=== PATIENT | male | born 1955 | race Caucasian/White ===

== ENCOUNTER 2018-11-19 07:51 | Day surgery (SDC) | payer MEDICARE ==
[2018-11-14 11:34] VITALS: BP 163/78
[2018-11-14 11:42] LABS: BASOPHILS % (AUTO) 1.2 % (0.0-5.0); EOSINOPHILS % (AUTO) 4.5 % (0.0-8.0); HEMATOCRIT 43.4 % (42-54); LYMPHOCYTES % (AUTO) 22.4 % (21.0-51.0); MEAN CORPUSCULAR HEMOGLOBIN 29.5 pg (27.0-33.0); MEAN CORPUSCULAR HGB CONC 33.3 g/dL (32.0-36.0); MEAN CORPUSCULAR VOLUME 88.8 fL (79-99); MONOCYTES % (AUTO) 8.6 % (3.0-13.0); NEUTROPHILS % (AUTO) 63.3 % (40.0-77.0); PLATELET COUNT (AUTO) 236 K/uL (130-400); RED BLOOD CELL COUNT(AUTO) 4.89 MIL/uL (4.50-6.20); RED CELL DISTRIBUTION WIDTH 12.6 % (11.0-15.5); WHITE BLOOD COUNT (AUTO) 5.4 K/uL (4.8-10.8)
[2018-11-14 11:48] LABS: APPEARANCE,URINE Clear (CLEAR); BILIRUBIN,URINE Negative (NEGATIVE); COLOR,URINE Yellow (YELLOW); GLUCOSE, URINE (UA) Negative (NEGATIVE); KETONES,URINE Negative (NEGATIVE); LEUKOCYTE ESTERASE ,URINE Negative (NEGATIVE); NITRATE,URINE Negative (NEGATIVE); OCCULT BLOOD,URINE Negative (NEGATIVE); PROTEIN,URINE Negative (NEGATIVE)
--- NOTE | 2018-11-14 12:45 | NUR ---
PT IN TO PREOP FOR SURGERY, PT IS DEAF MUTE, BUT KNOWS OFFICIAL SIGN LANGUAGE. A rn rehabilitation was called in to preop pt. HIPOLITO MELCHOR CAME IN TO INTERPRET. INSTRUCTIONS GIVEN TO PATIENT AND TO FAMILY WITH THE ASSISTANCE OF THE TOOL ROOM ATTENDANT. PATIENT AND FAMILY INFORMED THAT ARRANGEMENT WILL BE MADE FOR TOOL ROOM ATTENDANT TO BE PRESENT ON DAY OF PROCEDURE. PER PATIENT HE UNDERSTANDS PROCEDURE AND AGREED TO HAVE IT DONE. BOTH PT MOTHER AND HIS SISTER PRESENT DURING INTERVIEW. CALLED TO MAKE ARRANGEMENT SPOKE TO CORINNE, WE ARE TO CALL A DAY BEFORE TO INFORM THEM OF SX TIME OF ARRIVAL.
[2018-11-19] VITALS (13 sets, daily range): BP systolic 112–157; BP diastolic 55–86
[~2018-11-19] VITALS: Ht 165.1 cm; Wt 84.2 kg
[~2018-11-19 07:51] MED LIST: LACTATED RINGERS 1000ML 1,000 ML IV SCH
[2018-11-19] MEDS ORDERED: BUPIVACAINE/PF 0.25% 30ML VIAL IJ ONE (08:22)
[2018-11-19] MEDS ORDERED: MIDAZOLAM HCL 1 MG/ML 2ML VIAL ONE (09:21)
[2018-11-19] MEDS ORDERED: SUCCINYLCHOLINE 200MG/10ML SYR ONE (09:21)
[2018-11-19] MEDS ORDERED: LIDOCAINE PF 2% 5ML ABBOJECT ONE (09:21)
[2018-11-19] MEDS ORDERED: PROPOFOL 10 MG/ML 20ML VIAL IV ONE (09:21)
[2018-11-19] MEDS ORDERED: DEXAMETHASONE SOD PHOSPHATE 10MG/ML 1ML VIAL ONE (09:21)
[2018-11-19] MEDS ORDERED: NEOSTIGMINE 5MG/5ML SYR IV ONE (09:22)
[2018-11-19] MEDS ORDERED: FENTANYL CITRATE PF 50 MCG/1 ML 2ML VIAL ONE (09:22)
[2018-11-19] MEDS ORDERED: ONDANSETRON HCL 4 MG/2 ML VIAL ONE (09:22)
[2018-11-19] MEDS ORDERED: ROCURONIUM 10MG/1ML SYR 10 MG/ML ML ONE (09:22)
[2018-11-19] MEDS ORDERED: LIDOCAINE HCL MPF 1% 5ML VIAL ONE ×2 (09:39)
[2018-11-19] MEDS ORDERED: MORPHINE SULFATE 2 MG/ML 1ML SYG ONE ×2 (10:35→10:46)
[2018-11-19] MEDS ORDERED: KETOROLAC TROMETHAMINE 30MG/ML ONE (10:35)
--- NOTE | 2018-11-19 11:30 | NUR ---
PT RETURNED FROM PACU IN NO DISTRESS, LEFT GROIN SHOWS NO ACTIVE BLEEDING OR HEMATOMA , YISSEL MELCHOR SHREDDING FLOOR EQUIPMENT OPERATOR IN TO ASSIST WITH COMMUNICATION WITH PT AND FAMILY.
--- NOTE | 2018-11-19 12:10 | NUR ---
PATIENT DISCHARGED IN NO DISTRESS, LEFT GROIN SHOWS NO ACTIVE BLEEDING OR HEMATOMA. NO SIGNS OF DISTRESS NOTED.
== END 2018-11-19 12:10 | disposition home or self-care (01) ==
LOC: DAH 07:51
PROVIDERS: ATTEND Surgery
DX: K40.90 Unilateral inguinal hernia, without obstruction or gangrene, not specified as recurrent (principal); F41.9 Anxiety disorder, unspecified; Z88.8 Allergy status to other drugs, medicaments and biological substances
CPT/HCPCS: 36415; 49505; 81003; 85025; A4450; A4452; C1729; C1781; J0330; J1100; J1885; J2001; J2250; J2405; J2704; J2710; J3010; J3490 ×3; J7030; J7120 ×2

== ENCOUNTER 2020-04-01 08:07 | Emergency (ER) | payer MEDICARE, OTHER | END 2020-04-01 09:15 | disposition home or self-care (01) | LOC: EDH 08:07 | DX: Z04.1 Encounter for examination and observation following transport accident (principal); V49.49XA Driver injured in collision with other motor vehicles in traffic accident, initial encounter; Y93.89 Activity, other specified; Y92.488 Other paved roadways as the place of occurrence of the external cause; Y99.8 Other external cause status ==